=== PATIENT | female | born 1960 | race African-American/Black ===

== ENCOUNTER 2020-06-27 17:33 | Emergency (ER) | payer OTHER ==
[~2020-06-27] VITALS: Ht 165.1 cm; Wt 81.7 kg
[2020-06-27 17:58] LABS: ABSOLUTE NEUTROPHILS 2.2 thou/uL (1.4-8.2); BASOPHILS 0.9 % (0.0-2.0); EOSINOPHILS 2.1 % (0.0-3.0); HEMATOCRIT 37.1 % (37.0-47.0); HEMOGLOBIN 12.4 gm/dL (12.0-15.0); LYMPHOCYTES 41.9 % (24.0-44.0); MCH 29.6 pg (26.0-34.0); MCHC 33.5 g/dL (28.0-37.0); MCV 88.5 fL (80.0-100.0); MONOCYTES 6.8 % (1.0-8.0); PLATELET COUNT 199 thou/uL (150-400); POLYS 48.3 % (36.0-66.0); RBC 4.19 mil/uL (4.20-5.00); RDW 13.8 % (10.5-14.5); WBC 4.6 thou/uL (4.0-11.0)
[2020-06-27 18:08] LABS: ANION GAP 7 mmol/L (7-16); BUN 27 mg/dL (7-18); CALCIUM 9.6 mg/dL (8.5-10.1); CHLORIDE 103 mmol/L (98-107); CO2 30 mmol/L (21-32); CREATININE 1.1 mg/dL (0.6-1.0); GLUCOSE 108 mg/dL (74-106); POTASSIUM 3.6 mmol/L (3.5-5.1); SODIUM 140 mmol/L (136-145)
[2020-06-27 18:18] LABS: ALBUMIN 3.8 g/dL (3.4-5.0); DIRECT BILIRUBIN < 0.1 mg/dL (<0.1-0.2); LIPASE 248 U/L (73-393); SGOT 18 U/L (15-37); SGPT 29 U/L (14-59); TOTAL BILIRUBIN 0.3 mg/dL (0.2-1.0); TOTAL PROTEIN 7.3 g/dL (6.4-8.2); TROPONIN-I <0.06 ng/mL (<0.06)
[2020-06-27 19:58] LABS: URINE BLOOD NEGATIVE (Negative); URINE CLARITY CLEAR; URINE COLOR YELLOW; URINE GLUCOSE-RANDOM* NEGATIVE (Negative); URINE KETONES NEGATIVE (Negative); URINE LEUKOCYTES-REFLEX NEGATIVE (Negative); URINE NITRITE-REFLEX NEGATIVE (Negative); URINE PROTEIN (DIPSTICK) NEGATIVE (Negative); URINE SPECIFIC GRAVITY <= 1.005 (1.005-1.035); URINE UROBILINOGEN 0.2 E.U./dl (0.2-1.0)
[2020-06-27 19:59] LABS: ICTOTEST (BILI CONFIRMATORY) Negative (Negative); URINE BILIRUBIN NEGATIVE (Negative)
[2020-06-27] MEDS ORDERED: BENTYL 10 MG CA10 M1 PO (20:00)
[2020-06-27 20:18] VITALS: BP 135/80
--- NOTE | 2020-06-28 07:15 | EKG ---
[address] [place] [address] ELECTROCARDIOGRAM REPORT Name: CAMRONSISSY D [facility] [id number] Admission: 06/27/20 Attend Phys: Discharge: 06/27/20 Date of : 60 Report #: [id number] [facility] ED Test Date: 2020-06-27 Test Time: 17:59:03 Pat Name: SISSY LYON Department: Room: Gender: F Mobile Phlebotomist: JUDAH : 1960 Requested By: Paco Staples Order Number: [id number] MD: Shalom Henley Measurements Intervals [place] Rate: 74 P: 66 WI: 197 QRS: 6 QRSD: 94 T: 20 QT: 384 QTc: 426 Interpretive Statements Sinus rhythm Abnormal R-wave progression, early transition No previous ECG available for comparison Electronically Signed On 06-28-2020 7:15:23 3D MODELER by Shalom Helney [email or web address] <ELECTRONICALLY SIGNED> By: Shalom Henley MD, [facility] 06/28/20 0715 1759 1759 Shalom Henley MD, FACC /EPI
== END 2020-06-27 20:18 | disposition home or self-care (01) ==
LOC: ER 17:33
PROVIDERS: Nurse Practitioner
DX: R10.30 Lower abdominal pain, unspecified (principal); R42 Dizziness and giddiness; M19.90 Unspecified osteoarthritis, unspecified site